=== PATIENT | female | born 1990 | race Caucasian/White ===

== ENCOUNTER 2016-06-08 02:02 | Emergency (ER) | payer MEDICAID ==
[~2016-06-08] VITALS: Ht 160 cm; Wt 64.0 kg
[2016-06-08 02:07] VITALS: Ht 160 cm; Wt 64.0 kg
--- NOTE | 2016-06-08 03:50 | ERD ---
ER Documentation Chief Complaint Date/Time DATE: 06/08/16 TIME: 03:48 Chief Complaint anxiety w/ numbness of both hands HPI 26-year-old female presents here in emergency department for complaints of mid chest pain, numbness and tingling in bilateral hands, unable to sleep insomnia for the last one week. Patient also is complaining of a chest pain, sharp pain, for/10 scale, worse upon taking a deep breath and touching the mid chest area, accompanied with Occasional Palpitations. Patient Denies Any Dyspnea on Exertion or dyspnea on lying down. Patient denies any fever or chills. Patient denies any cough. Patient did not take any medications of the symptoms. Patient denies suicidal or ideations. she denies any history of anxiety. ROS All systems reviewed and are negative except as per history of present illness. Medications Home Meds Reported Medications [none] Unknown Strength No Conflict Check 06/08/16 Allergies Allergies: Coded Allergies: No Known Allergy (Unverified , 06/08/16) PMhx/Soc Medical and Surgical Hx: pt denies Medical Hx, pt denies Surgical Hx FmHx Family History: No coronary disease, No diabetes, No other Physical Exam Vitals Vital Signs Date Time Temp Pulse Resp B/P Pulse Ox O2 Delivery O2 Flow Rate FiO2 06/08/16 02:07 97.8 92 20 127/79 100 Physical Exam GENERAL: The patient is well developed and appropriate for usual state of health, in no apparent distress. CHEST: Clear to auscultation bilaterally. There are no rales, wheezes or rhonchi. Tenderness on palpation on the midchest wall. HEART: Regular rate and rhythm. No murmurs, clicks, rubs or gallops. No S3 or S4. ABDOMEN: Soft, nontender and nondistended. Good bowel sounds. No rebound or guarding. No gross peritonitis. No gross organomegaly or masses. No Jose sign or McBurney point tenderness. BACK: No midline or flank tenderness. EXTREMITIES: Equal pulses bilaterally. There is no peripheral clubbing, cyanosis or edema. No focal swelling or erythema. Full range of motion. Grossly neurovascularly intact. NEURO: Alert and oriented. Cranial nerves 2-12 intact. Motor strength in all 4 extremities with 5/5 strength. Sensation grossly intact. Normal speech and gait. SKIN: There is no apparent rash or petechia. The skin is warm and dry. HEMATOLOGIC AND LYMPHATIC: There is no evidence of excessive bruising or lymphedema. No gross cervical, axillary, or inguinal lymphadenopathy. Results 24 hrs EKG was done, read by me and is normal sinus rhythm at a rate of 87, normal axis , there is no ST changes or changes in the EKG that indicates any cardiac emergencies at this time. Patient's EKG was also reviewed by Dr. Blevins. Impression: no acute findings on EKG PROCEDURE: XR Chest. CLINICAL INDICATION: chest pain TECHNIQUE: Portable single view of the chest COMPARISON: None. FINDINGS: The cardiomediastinal silhouette appears within normal limits. The lungs are clear and no pleural effusion or significant edema is seen. No bony abnormality is seen. IMPRESSION: No definite acute pulmonary disease. RPTAT: [facility] Physician Cammie Date Time Electronically viewed and signed by Heather Wang Physician on 06/08/2016 04 :11 LE/ CC: LAVELLE MAS BAIT TIER Procedures/MDM Medical Decision Making: Patient symptoms was likely consistent with anxiety, can be also musculoskeletal pain, costochondritis since pain is palpable and reproducible. There is low suspicion for cardiopulmonary emergencies at this time. Patient has low risk factors. EKG is normal, there is no changes in the EKG that indicates cardiac emergencies. Chest X-ray does not show cardiopulmonary emergencies at this time. There is low suspicion for aortic aneurysm, myocardial infarction, pneumothorax, pleural effusion, pulmonary embolism, or any other cardiopulmonary emergencies at this time. Laboratory testing are not indicated at this time. She was given ibuprofen for pain, was advised to follow with primary care doctor in 2-3 days for reevaluation of symptoms. Patient advised to avoid heavy lifting, patient was advised to return to emergency department for any worsening symptoms. Departure Diagnosis: Primary Impression: Chest wall pain Additional Impression: Anxiety Condition: Stable Patient Instructions: Anxiety Reaction, Chest Wall Pain, Costochondritis Additional Instructions: She was given ibuprofen for pain, was advised to follow with primary care doctor in 2-3 days for reevaluation of symptoms. Patient advised to avoid heavy lifting, patient was advised to return to emergency department for any worsening symptoms. LAVELLE MAS NP Jun 08, 2016 03:50
--- NOTE | 2016-06-08 04:11 | RADRPT ---
PROCEDURE: XR Chest. CLINICAL INDICATION: chest pain TECHNIQUE: Portable single view of the chest COMPARISON: None. FINDINGS: The cardiomediastinal silhouette appears within normal limits. The lungs are clear and no pleural e ffusion or significant edema is seen. No bony abnormality is seen. IMPRESSION: No definite acute pulmonary disease. RPTAT: [facility] Heather Wang Physician Date Time Electronically viewed and signed by Heather Wang Physician on 06/08/2016 04:11 LE/
[2016-06-08] MEDS ORDERED: IBUP-1542 PO (04:42)
[2016-06-08 05:03] VITALS: BP 126/86; RESP 18; TEMP 98.6
== END 2016-06-08 05:05 | disposition home or self-care (01) ==
LOC: FTE 02:02
DX: R07.89 Other chest pain (principal)
CPT/HCPCS: 71010; 93005; Z7502

== ENCOUNTER 2017-01-08 08:11 | Emergency (ER) | END 2017-01-08 09:22 | disposition home or self-care (01) | DX: T22.211A Burn of second degree of right forearm, initial encounter (principal); R40.2412 Glasgow coma scale score 13-15, at arrival to emergency department; X13.1XXA Other contact with steam and other hot vapors, initial encounter; Y92.89 Other specified places as the place of occurrence of the external cause ==

== ENCOUNTER 2019-03-29 13:40 | Emergency (ER) | payer SELFPAY ==
[~2019-03-29] VITALS: Ht 157.5 cm; Wt 57.0 kg
[~2019-03-29 13:40] MED LIST: IBUP-1542 PO; NAPH15DR69 BOTH EYES
[2019-03-29 13:45] VITALS: BP 110/56; PULSE 80; RESP 16; Ht 157.5 cm; Wt 57.0 kg
== END 2019-03-29 14:11 | disposition home or self-care (01) ==
LOC: FTE 13:40
DX: H11.003 Unspecified pterygium of eye, bilateral (principal)
CPT/HCPCS: 99282